=== PATIENT | female | born 1975 | race Caucasian/White ===

== ENCOUNTER 2016-11-20 14:39 | Emergency (ER) | payer OTHER | END 2016-11-20 16:45 | disposition home or self-care (01) | LOC: FER 14:39 | DX: J18.9 Pneumonia, unspecified organism (principal); J45.909 Unspecified asthma, uncomplicated; Z87.891 Personal history of nicotine dependence; Z79.51 Long term (current) use of inhaled steroids | CPT/HCPCS: 71020; 87804; 87899; 94640; J2930 ==

== ENCOUNTER 2016-11-26 12:33 | Emergency (ER) | payer OTHER | END 2016-11-26 14:56 | disposition home or self-care (01) | LOC: FER 12:33 | DX: J45.901 Unspecified asthma with (acute) exacerbation (principal); F32.9 Major depressive disorder, single episode, unspecified; Z79.899 Other long term (current) drug therapy | CPT/HCPCS: 94640; J2930 ==